=== PATIENT | male | born 1935 | race Caucasian/White ===

== ENCOUNTER 2018-01-23 18:28 | Inpatient (IN) | payer MEDICARE ==
[~2018-01-23] VITALS: Ht 165.1 cm; Wt 66.9 kg
[~2018-01-23 18:28] MED LIST: ACET325T9 PO; ALBU8.5H8 INH; ALLO100T PO; ALPR0.254 PO; ASPI325T8 PO; BUPR150T11 PO; CALC500T10 PO; CHOL10003 PO; DOCU100C28 PO; FINA5TAB4 PO; FLUT9.9S NS; LIDO1ADH TP; MAG30ORA2 PO; METO25TA4 PO; OLAN5TAB3 PO; OLAN5TAB5 PO; OMEP20TA8 PO; ONDA4TAB10 PO; PRAV80TA2 PO; SAXA5TAB PO; SODI50SP NS; TAMS0.4C2 PO
[2018-01-23] MEDS ORDERED: METH5TAB6 PO (18:39)
[2018-01-23] MEDS ORDERED: HYDR-2758 PO (19:32)
[2018-01-23] MEDS ORDERED: SERT50TA PO (19:33)
[2018-01-23] MEDS ORDERED: TRAZ-85 PO (19:35)
[2018-01-23] MEDS ORDERED: IPRA3AMP29 NEB (19:36)
[2018-01-23] MEDS ORDERED: IV NORMAL SALINE 1,000ML 1,000 ML IV SCH (21:30)
[2018-01-23 21:33] VITALS: BP 156/83
[2018-01-23 22:06] LABS: BACTERIA,URINE 0 /HPF (0-FEW); BILIRUBIN,URINE MOD (NEG); CLARITY,URINE CLEAR; COLOR,URINE AMBER; GLUCOSE,URINE NEG (NEG); NITRITE,URINE NEG (NEG); RBC,URINE 0 /HPF (0-2); UROBILINOGEN,URINE 0.2 mg/dL (0.2 mg/dL); WBC,URINE RARE /HPF (0-4)
[2018-01-23] MEDS ORDERED: CALCIUM CARBONATE 500 MG TAB.CHEW PO PRN (22:15)
[2018-01-23] MEDS ORDERED: MAG HYDROX/AL HYDROX/SIMETH 30 ML ORAL.SUSP PO PRN (22:15)
[2018-01-23] MEDS ORDERED: ACETAMINOPHEN 325 MG TABLET PO PRN (22:15)
[2018-01-23] MEDS ORDERED: ALBUTEROL SULFATE 8GM INHALER. INH PRN (22:15)
[2018-01-23] MEDS ORDERED: ALBUTEROL SULFATE 2.5 MG/3 ML NEBU. NEB PRN (22:30)
[2018-01-23] MEDS ORDERED: traZODone 50 MG TABLET. PO PRN (22:30)
[2018-01-23] MEDS ORDERED: SODIUM CHLORIDE 0.65% NASAL SPRAY 45ML BOTTLE. NS PRN (22:30)
[2018-01-23] MEDS: PIPERACILLIN/TAZOBACTAM 2.25 GM in IV NORMAL SALINE 50ML 50 ML IV SCH (22:32)
[2018-01-23 23:45] VITALS: BP 134/74
[2018-01-24 05:00] VITALS: BP 131/60
[2018-01-24 05:16] LABS: BASO % 0 % (0-3); EOS % 0 % (0-3); HEMATOCRIT 35.4 % (39.0-53.0); HEMOGLOBIN 11.3 g/dL (13.0-17.5); LYMPH # 0.7 x10^3/uL (1.0-4.8); LYMPH % 3 % (24-48); MEAN CORPUSCULAR HEMOGLOBIN 32 pg (25-35); MEAN CORPUSCULAR HGB CONC 32 g/dL (31-37); MEAN CORPUSCULAR VOLUME 100 fL (79-100); MONO % 4 % (0-9); NEUT # 20.6 x10^3uL (1.8-7.7); NEUT % 92 % (31-73); PLATELET COUNT 216 x10^3/uL (140-400); RED BLOOD COUNT 3.54 x10^6/uL (4.30-5.70); WHITE BLOOD COUNT 22.4 x10^3/uL (4.0-11.0)
[2018-01-24 05:24] LABS: ALBUMIN 2.5 g/dL (3.4-5.0); ALBUMIN/GLOBULIN RATIO 0.7 (1.0-1.7); CALCIUM 9.2 mg/dL (8.5-10.1); CREATININE 1.8 mg/dL (0.7-1.3); POTASSIUM 4.6 mmol/L (3.5-5.1); TOTAL BILIRUBIN 0.9 mg/dL (0.2-1.0); TOTAL PROTEIN 6.3 g/dL (6.4-8.2)
[2018-01-24] MEDS: PIPERACILLIN/TAZOBACTAM 2.25 GM in IV NORMAL SALINE 50ML 50 ML IV SCH ×3 (05:38→21:28)
[2018-01-24] MEDS: IPRATRPIUM/ALBUTEROL 0.5/2.5MG 3 ML NEBU. NEB SCH ×4 (06:17→20:40)
[2018-01-24] MEDS: PANTOPRAZOLE 40 MG TABLET. PO SCH (07:30)
[2018-01-24 08:21] VITALS: BP 145/62
[2018-01-24] MEDS: SERTRALINE 50 MG TABLET. PO SCH (09:00)
[2018-01-24] MEDS: METOPROLOL TART IMMED RELEASE 25 MG TABLET PO SCH ×2 (09:00→20:36)
[2018-01-24] MEDS: ASPIRIN 325 MG TABLET PO SCH (09:00)
[2018-01-24] MEDS: LACTOBACILLUS RHAMNOSUS GG 1 CAPSULE. PO SCH ×2 (09:00→20:36)
[2018-01-24] MEDS: DOCUSATE SODIUM 100 MG CAPSULE PO SCH ×2 (09:00→20:36)
[2018-01-24] MEDS: FLUTICASONE 50MCG/NASAL SPRAY 16GM BOTTLE. NS SCH (09:00)
[2018-01-24] MEDS: LINAGLIPTIN 5 MG TABLET PO SCH (09:00)
[2018-01-24] MEDS: CHOLECALCIFEROL (VITAMIN D3) 1,000 UNIT TABLET PO SCH (09:00)
[2018-01-24] MEDS: ALLOPURINOL 100 MG TABLET. PO SCH (09:00)
[2018-01-24] MEDS: FINASTERIDE 5 MG TABLET PO SCH (09:00)
[2018-01-24 09:34] LABS: % BANDS 2 % (0-9); % LYMPHS 1 % (24-48); % MONOS 2 % (0-10); % SEGS 95 % (35-66); NUCLEATED RBC 2; PLT ESTIMATE ADEQUATE (ADEQUATE); TOXIC GRANULATION PRESENT
[2018-01-24 09:35] LABS: HYPOCHROMIA SLIGHT
[2018-01-24] MEDS: IV DEXTROSE 5 %-0.45 % NACL 1,000 ML IV SCH (10:56)
[2018-01-24 11:00] VITALS: BP 138/58
--- NOTE | 2018-01-24 11:09 | PN ---
DATE: 01/24/2018 SUBJECTIVE: The patient is resting, slightly propped up in bed, in no apparent respiratory distress, sleepy, but arousable. Denied any complaint. The nursing staff stated that he continued to be noncompliant , refusing to eat, refusing care, refusing his medication. He pulled his IV line once. PHYSICAL EXAMINATION: GENERAL: When I saw him this morning, he looked pale, but no jaundice, cyanosis, or thyromegaly. No jugular venous distention. No limb edema. VITAL SIGNS: His heart rate was 77, blood pressure was 145/62, temperature was 98.3, respiratory rate 20, and oxygen saturation was 96% on room air. HEAD, EYES, EARS, NOSE, AND THROAT: Showed normocephalic, atraumatic. NECK: Supple. HEART: Showed normal first and second heart sounds with no gallop, rub, or murmur. CHEST: Clear to auscultation. No crepitation or rhonchi. ABDOMEN: Scaphoid, soft, nontender. NEUROLOGIC: He was sleepy, but arousable. All cranial nerves intact. He moves extremities without difficulty, although has marked muscle wasting and weakness. His intake and output were incompletely recorded. LABORATORY DATA: His lab work this morning showed a serum sodium of 145, potassium 4.6, chloride 112, bicarbonate 23, anion gap of 10, BUN 47, creatinine 1.8, estimated GFR was 36 mL per minute. His glucose was 153. His lactic acid was 2.4. His calcium was 9.2. Total bilirubin, AST, ALT, alkaline phosphatase were normal. Total protein was 6.3, albumin 2.5. His white cell count has risen further to 22,400, hemoglobin 11.3, hematocrit 35.4, MCV 100, and platelet count of 216,000. His urinalysis again was unremarkable. The patient refused to allow us to have a chest x-ray. ASSESSMENT AND PLAN: In summary, this is an 83-year-old male patient who was transferred to [address] [place] [address] with sepsis with marked leukocytosis and lactic acidosis. We have sent blood for culture and sensitivity as well as urine for culture. The results are still pending. We started him on Zosyn and Zyvox and we will continue with that. 1. Zebjb-[id number]-[id number] kidney injury, for which he is on normal saline at 75 mL per hour. 2. Severe protein-calorie malnutrition. Serum albumin is only 2.5 mg/dL. 3. Anemia. Hemoglobin is 11, hematocrit 35. 4. Recent fall, with right hip fracture, status post open reduction and internal fixation. 5. He has multiple other medical problems including type 2 diabetes mellitus, hyperlipidemia, hypertension, coronary artery disease, status post PCI with stent deployment, chronic kidney disease, benign prostatic hypertrophy. DHAVAL STEPHENSON MD DR: ANDREW/anastasia JOB#: [id number] / [id number]
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
[2018-01-24] MEDS: LIDOCAINE (700MG/PATCH) PATCH. TD SCH (14:19)
[2018-01-24 15:00] VITALS: BP 132/74
--- NOTE | 2018-01-24 17:17 | RAD ---
PQRS Compliance statement: One or more of the following individualized dose reduction techniques were utilized for this examination: 1. Automated exposure control. 2. Adjustment of the mA and/or kV according to patient size. 3. Use of iterative reconstruction technique. Indication: Swelling in the neck, cough, elevated WBC. TECHNIQUE: CT of the neck without IV contrast. IV contrast was not given due to poor renal function. COMPARISON: None FINDINGS: Limited evaluation of due to lack of IV contrast. Visualized noncontrast appearance of the orbits and brain is within normal limits. The nasopharynx, oropharynx and hypopharynx are within normal limits. The left submandibular gland is asymmetrically enlarged. The right submandibular gland, bilateral parotid glands and thyroid are within normal limits. Superficial inflammation is seen in the left face and in the submental soft tissue. No retropharyngeal or prevertebral abscess. No enlarged cervical adenopathy. Trachea is patent. Mild bilateral atherosclerotic disease seen in the carotid bulbs. Shotty left perimandibular lymph nodes are seen. Moderate emphysematous changes in the visualized lungs. The paranasal sinuses and mastoid air cells are clear. Mild multilevel degenerative disc disease is seen in the cervical spine. IMPRESSION: Limited evaluation due to lack of IV contrast. 1. Asymmetrically enlarged left submandibular gland with surrounding inflammation suggests sialadenitis. 2. No retropharyngeal or prevertebral soft tissue abscess. Electronically signed by: Iain Thomas DO (01/24/2018 5:14 PM) [facility]
[2018-01-24 19:30] VITALS: BP 109/58
[2018-01-24] MEDS: OLANZapine 5 MG TABLET PO SCH ×2 (20:36→20:46)
[2018-01-24] MEDS: TAMSULOSIN 0.4 MG CAP.ER.24H. PO SCH ×2 (20:36→20:46)
[2018-01-24] MEDS: PRAVASTATIN 20 MG TABLET. PO SCH (20:37)
--- NOTE | 2018-01-24 21:09 | PDOC ---
Exam Note: Shaheen Note: Please also refer to the separate dictated note~for this date of service dictated separately.~Patient seen individually. Discussed the patient with Nursing staff reviewed the chart.~Reviewed interim history and current functioning. Reviewed vital signs,~Labs/ Radiology~and current medications noted below. Continue current treatment with the changes noted in the dictated addendum note Assessment: Vital Signs: Vital Signs Date Time Temp Pulse Resp B/P (MAP) Pulse Ox O2 Delivery O2 Flow Rate FiO2 01/24/18 20:40 94 Room Air 01/24/18 20:36 66 109/58 01/24/18 19:30 98.9 18 I&O Intake and Output 01/24/18 07:00 Output Total 100 ml Balance -100 ml Output Urine Total 100 ml # Voids 2 Labs: Laboratory Tests Test 01/23/18 21:47 01/23/18 21:50 01/24/18 01:50 01/24/18 05:00 Lactic Acid Level 2.9 mmol/L (0.4-2.0) H 2.4 mmol/L (0.4-2.0) H Urine Collection Type Unknown Urine Color Swetha Urine Clarity Clear Urine pH 5.0 Urine Specific [place] 1.020 Urine Protein 30 mg/dl (NEG-TRACE) Urine Glucose (UA) Neg mg/dL (NEG) Urine Ketones (Stick) 40 mg/dL (NEG) Urine Blood Small (NEG) Urine Nitrite Neg (NEG) Urine Bilirubin Mod (NEG) Urine Urobilinogen Dipstick 0.2 mg/dL (0.2 mg/dL) Urine Leukocyte Esterase Neg (NEG) Urine RBC 0 /HPF (0-2) Urine WBC Rare /HPF (0-4) Urine Squamous Epithelial Cells None /LPF Urine Bacteria 0 /HPF (0-FEW) Urine Mucus Slight /LPF White Blood Count 22.4 x10^3/uL (4.0-11.0) H Red Blood Count 3.54 x10^6/uL (4.30-5.70) L Hemoglobin 11.3 g/dL (13.0-17.5) L Hematocrit 35.4 % (39.0-53.0) L Mean Corpuscular Volume 100 fL (79-100) Mean Corpuscular Hemoglobin 32 pg (25-35) Mean Corpuscular Hemoglobin Concent 32 g/dL (31-37) Red Cell Distribution Width 16.0 % (11.5-14.5) H Platelet Count 216 x10^3/uL (140-400) Neutrophils (%) (Auto) 92 % (31-73) H Lymphocytes (%) (Auto) 3 % (24-48) L Monocytes (%) (Auto) 4 % (0-9) Eosinophils (%) (Auto) 0 % (0-3) Basophils (%) (Auto) 0 % (0-3) Neutrophils # (Auto) 20.6 x10^3uL (1.8-7.7) H Lymphocytes # (Auto) 0.7 x10^3/uL (1.0-4.8) L Monocytes # (Auto) 1.0 x10^3/uL (0.0-1.1) Eosinophils # (Auto) 0.0 x10^3/uL (0.0-0.7) Basophils # (Auto) 0.0 x10^3/uL (0.0-0.2) Segmented Neutrophils % 95 % (35-66) H Band Neutrophils % 2 % (0-9) Lymphocytes % 1 % (24-48) L Monocytes % 2 % (0-10) Nucleated Red Blood Cells 2 Toxic Granulation Present Platelet Estimate Adequate (ADEQUATE) Hypochromasia Slight Sodium Level 145 mmol/L (136-145) Potassium Level 4.6 mmol/L (3.5-5.1) Chloride Level 112 mmol/L (98-107) H Carbon Dioxide Level 23 mmol/L (21-32) Anion Gap 10 (6-14) Blood Urea Nitrogen 47 mg/dL (8-26) H Creatinine 1.8 mg/dL (0.7-1.3) H Estimated GFR (Cockcroft-Gault) 36.0 BUN/Creatinine Ratio 26 (6-20) H Glucose Level 153 mg/dL (70-99) H Calcium Level 9.2 mg/dL (8.5-10.1) Total Bilirubin 0.9 mg/dL (0.2-1.0) Aspartate Amino Transferase (AST) 20 U/L (15-37) Alanine Aminotransferase (ALT) 20 U/L (16-63) Alkaline Phosphatase 70 U/L (46-116) Total Protein 6.3 g/dL (6.4-8.2) L Albumin 2.5 g/dL (3.4-5.0) L Albumin/Globulin Ratio 0.7 (1.0-1.7) L Current Medications: Meds: Current Medications Piperacillin Sod/ Tazobactam Sod 2.25 gm/Sodium Chloride 50 ml @ 100 mls/hr Q8HRS IV Last administered on 01/24/18at 14:00; Start 01/23/18 at 22:00 Linezolid 300 ml @ 300 mls/hr Q12HR IV Last administered on 01/24/18at 20:16; Start 01/23/18 at 21:30 Sodium Chloride 1,000 ml @ 75 mls/hr [id number] IV Last administered on 01/23/18at 22:31; Start 01/23/18 at 21:30; Stop 01/24/18 at 10:13; Status DC Acetaminophen (Tylenol) 650 mg PRN Q6HRS PRN PO PAIN / TEMP; Start 01/23/18 at 22:15 Albuterol Sulfate (Ventolin Hfa Inhaler) 2 puff PRN Q4HRS PRN INH SHORTNESS OF BREATH; Start 01/23/18 at 22:15; Stop 01/23/18 at 22:25; Status DC Aspirin (Sterling Consolidated Aspirin) 325 mg DAILY PO ; Start 01/24/18 at 09:00 Vitamin D (Vitamin D3) 1,000 unit DAILY PO ; Start 01/24/18 at 09:00 Albuterol/ Ipratropium (Duoneb) 3 ml QID NEB Last administered on 01/24/18at 20: 40; Start 01/24/18 at 09:00 Al Hydroxide/Mg Hydroxide (Mylanta Plus Xs) 15 ml PRN Q4HRS PRN PO GERD; Start 01/23/18 at 22:15 Metoprolol Tartrate (Lopressor) 25 mg BID PO ; Start 01/24/18 at 09:00 Olanzapine (ZyPREXA ZYDIS) 2.5 mg PRN Q8MIN PRN PO ANXIETY / AGITATION; Start 01/23/18 at 22:15 Sertraline HCl (Zoloft) 50 mg DAILY PO ; Start 01/24/18 at 09:00 Tamsulosin HCl (Flomax) 0.4 mg QHS PO ; Start 01/24/18 at 21:00 Allopurinol (Zyloprim) 100 mg DAILY PO ; Start 01/24/18 at 09:00 Calcium Carbonate/ Glycine (Tums) 500 mg PRN BID PRN PO INDIGESTION; Start 01/23 at 22:15 Docusate Sodium (Colace) 100 mg BID PO ; Start 01/24/18 at 09:00 Finasteride (Proscar) 5 mg DAILY PO ; Start 01/24/18 at 09:00 Fluticasone Propionate (Flonase) 2 spray DAILY NS ; Start 01/24/18 at 09:00 Acetaminophen/ Hydrocodone Bitart (Lortab 5/325) 1 tab PRN Q4HRS PRN PO PAIN; Start 01/23/18 at 22:30 Lidocaine (Lidoderm) 1 patch DAILY TD Last administered on 01/24/18at 14:19; Start 01/24/18 at 09:00 Methimazole (Tapazole) 5 mg TID PO ; Start 01/24/18 at 09:00 Olanzapine (ZyPREXA) 5 mg QHS PO ; Start 01/24/18 at 21:00 Pantoprazole Sodium (Protonix) 40 mg DAILYAC PO ; Start 01/24/18 at 07:30 Pravastatin Sodium (Pravachol) 80 mg QHS PO ; Start 01/24/18 at 21:00 Linagliptin (Tradjenta) 5 mg DAILY PO ; Start 01/24/18 at 09:00 Sodium Chloride (Saline Mist Nasal) 1 erik PRN Q4HRS PRN NS NASAL CONGESTION; Start 01/23/18 at 22:30 Trazodone HCl (Desyrel) 50 mg PRN QHS PRN PO INSOMNIA; Start 01/23/18 at 22:30 Albuterol Sulfate (Ventolin) 2.5 mg PRN Q4HRS PRN NEB SHORTNESS OF BREATH; Start 01/23/18 at 22:30 Lactobacillus Rhamnosus (Culturelle) 1 cap BID PO ; Start 01/24/18 at 09:00 Dextrose/Sodium Chloride 1,000 ml @ 100 mls/hr Q10H IV Last administered on 01/24/18at 10:56; Start 01/24/18 at 10:15 Active Scripts Active Reported Duoneb 0.5-3(2.5) Mg/3 Ml (Albuterol/Ipratropium) 3 Ml Ampul.neb 3 Ml NEB QID Trazodone Hcl 50 Mg Tablet 50 Mg PO PRN QHS PRN Zoloft (Sertraline Hcl) 50 Mg Tablet 50 Mg PO DAILY Hydrocodone-Apap 5-325 (Hydrocodone Bit/Acetaminophen) 1 Each Tablet 1 Tab PO PRN Q4HRS PRN Methimazole 5 Mg Tablet 5 Mg PO TID Zyprexa Zydis (Olanzapine) 5 Mg Tab.rapdis 2.5 Mg PO PRN Q8MIN PRN Zyprexa (Olanzapine) 5 Mg Tablet 5 Mg PO QHS Zofran Odt (Ondansetron) 4 Mg Tab.rapdis 4 Mg PO PRN Q6HRS PRN Tylenol (Acetaminophen) 325 Mg Tablet 650 Mg PO PRN Q6HRS PRN Calci-Chew (Calcium Carbonate) 500 Mg Tab.chew 500 Mg PO PRN BID PRN Tamsulosin Hcl 0.4 Mg Cap.er.24h 0.4 Mg PO QHS Onglyza (Saxagliptin Hcl) 5 Mg Tablet 2.5 Mg PO DAILY Pravastatin Sodium 80 Mg Tablet 80 Mg PO QHS Omeprazole 20 Mg Tablet.dr 20 Mg PO DAILY Mag-Al Plus Xs Suspension (Mag Hydrox/Al Hydrox/Simeth) 30 Ml Oral.susp 15 Ml PO PRN Q4HRS PRN Metoprolol Tartrate 25 Mg Tablet 25 Mg PO BID Lidopatch (Lidocaine/Menthol) 1 Each Adh..patch 1 Patch TP DAILY Flonase Allergy Relief (Fluticasone Propionate) 9.9 Ml [place].susp 1 Sprays NS DAILY Finasteride 5 Mg Tablet 5 Mg PO DAILY Docusate Sodium 100 Mg Capsule 100 Mg PO BID Vitamin D3 (Cholecalciferol (Vitamin D3)) 1,000 Unit Tablet 1,000 Unit PO DAILY [place] Saline (Sodium Chloride) 50 Ml [place] 1 Erik NS PRN Q4HRS PRN Aspirin 325 Mg Tablet 325 Mg PO DAILY Allopurinol 100 Mg Tablet 100 Mg PO DAILY Proair Hfa Inhaler (Albuterol Sulfate) 8.5 Gm Hfa.aer.ad 2 Puff INH PRN Q4HRS PRN I have reviewed the current psychotropics carefully including drug interactions. Risk benefit ratio favors no change other than as noted in my dictated progress note. 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
[2018-01-24] MEDS: HYDROcodone/APAP 5/325MG 1 TAB TABLET PO PRN (21:28)
--- NOTE | 2018-01-24 21:55 | PN ---
DATE: 01/24/2018 PSYCHIATRIC PROGRESS NOTE This note covers elements not covered in my initial note of 01/24/2018. SUBJECTIVE: I met with the patient in the evening of 01/24/2018. The patient remains confused, has been yelling out per the nursing staff. He remains septic and is being treated per Dr. Minaya, but intermittently psychotic, delirious. He is unable to ambulate. REVIEW OF SYSTEMS: No CV, , pulmonary, eye system symptoms on review. MENTAL STATUS EXAM: Insight, judgment, recent and remote memory, attention, concentration, fund of knowledge poor, consistent with his diagnosis. IMPRESSION: Major neurocognitive disorder, Alzheimer, vascular with delirium, sepsis, acute on chronic renal failure, protein calorie malnutrition, hyperthyroidism. RECOMMENDATION: From a psychiatric standpoint, continue Zyprexa p.r.n. and we may change this to Zyprexa Zydis. No further change from a psychiatric standpoint. JHOAN FARIA MD DR: MIHAELA/anastasia JOB#: [id number] / [id number]
[2018-01-24 23:09] VITALS: BP 110/62
[2018-01-25] MEDS: IV DEXTROSE 5 %-0.45 % NACL 1,000 ML IV SCH (01:01)
[2018-01-25] MEDS: HYDROcodone/APAP 5/325MG 1 TAB TABLET PO PRN ×2 (04:21→22:53)
[2018-01-25] MEDS: IPRATRPIUM/ALBUTEROL 0.5/2.5MG 3 ML NEBU. NEB SCH ×4 (05:20→20:30)
[2018-01-25] MEDS: PIPERACILLIN/TAZOBACTAM 2.25 GM in IV NORMAL SALINE 50ML 50 ML IV SCH ×3 (05:20→22:53)
[2018-01-25 05:47] VITALS: BP 116/68
[2018-01-25 06:39] LABS: HEMATOCRIT 31.1 % (39.0-53.0); HEMOGLOBIN 10.2 g/dL (13.0-17.5); RED BLOOD COUNT 3.16 x10^6/uL (4.30-5.70); RED CELL DISTRIBUTION WIDTH 15.1 % (11.5-14.5); WHITE BLOOD COUNT 16.8 x10^3/uL (4.0-11.0)
[2018-01-25 06:59] LABS: ALBUMIN 2.1 g/dL (3.4-5.0); ALBUMIN/GLOBULIN RATIO 0.6 (1.0-1.7); CALCIUM 8.7 mg/dL (8.5-10.1); CREATININE 1.5 mg/dL (0.7-1.3); GFR 44.5; POTASSIUM 3.3 mmol/L (3.5-5.1); TOTAL BILIRUBIN 0.9 mg/dL (0.2-1.0); TOTAL PROTEIN 5.6 g/dL (6.4-8.2)
[2018-01-25] MEDS: PANTOPRAZOLE 40 MG TABLET. PO SCH (07:30)
[2018-01-25] MEDS: LACTOBACILLUS RHAMNOSUS GG 1 CAPSULE. PO SCH ×2 (09:00→20:43)
[2018-01-25] MEDS: METOPROLOL TART IMMED RELEASE 25 MG TABLET PO SCH ×2 (09:00→20:44)
[2018-01-25] MEDS: ASPIRIN 325 MG TABLET PO SCH (09:00)
[2018-01-25] MEDS: ALLOPURINOL 100 MG TABLET. PO SCH (09:00)
[2018-01-25] MEDS: DOCUSATE SODIUM 100 MG CAPSULE PO SCH ×3 (09:00→21:00)
[2018-01-25] MEDS: FLUTICASONE 50MCG/NASAL SPRAY 16GM BOTTLE. NS SCH (09:00)
[2018-01-25] MEDS: FINASTERIDE 5 MG TABLET PO SCH (09:00)
[2018-01-25] MEDS: CHOLECALCIFEROL (VITAMIN D3) 1,000 UNIT TABLET PO SCH (09:00)
[2018-01-25] MEDS: SERTRALINE 50 MG TABLET. PO SCH (09:00)
[2018-01-25] MEDS: LINAGLIPTIN 5 MG TABLET PO SCH (09:00)
[2018-01-25 10:42] VITALS: BP 147/64
[2018-01-25] MEDS: POTASSIUM CL 40MEQ IN D5W 1,000 ML IV SCH ×2 (11:29→23:36)
[2018-01-25] MEDS: LIDOCAINE (700MG/PATCH) PATCH. TD SCH (11:45)
--- NOTE | 2018-01-25 14:27 | PN ---
DATE: 01/25/2018 SUBJECTIVE: The patient is resting, slightly propped up in bed, in no apparent distress. He continued to complain of pain in his left jaw. He is still unable to eat or drink, although he managed to drink a little bit yesterday. We did a CT scan of the neck and the chest that showed the patient has symmetrically enlarged left submandibular gland with surrounding inflammation, suggesting sialadenitis. He has no retropharyngeal or prevertebral soft tissue abscess. His CT scan of the chest also was unremarkable with moderate emphysematous changes in the visualized lungs. The paranasal sinuses and mastoid air cells are clear. Mild multilevel degenerative disk disease seen in the cervical spine. OBJECTIVE: GENERAL: When I examined him this morning, he looked well and was clearly in no apparent respiratory distress, slightly pale, no jaundice, cyanosis, lymphadenopathy or thyromegaly. No jugular venous distension. No limb edema. VITAL SIGNS: His heart rate was 74, blood pressure was 147/64, temperature was 98.4, respiratory rate was 20, and oxygen saturation was 96% on room air. HEAD, EYES, EARS, NOSE AND THROAT: Showed normocephalic with definitely more swollen left side of the jaw compared to the right. This is markedly tenderness, but there is no Esmarch and it is indurated, but no fluctuation. NECK: Supple. CARDIAC: Normal first and second heart sounds with no gallop, rub or murmur. CHEST: Clear to auscultation. No crepitation or rhonchi. ABDOMEN: Scaphoid, soft, nontender. NEUROLOGIC: He was sleepy, but arousable. All cranial nerves intact. He moves extremities without difficulty. His intake over the last 24 hours was 520, output was 750. LABORATORY DATA: Her lab work this morning showed a white cell count down to 16,800, hemoglobin 10, hematocrit 31, MCV 99, and platelet count of 186,000. Serum sodium is up to 246, potassium 3.3, chloride 113, bicarbonate 24, anion gap of 9, BUN 32, creatinine 1.5. The estimated GFR was 44 mL per minute. Her glucose was 148, calcium was 8.7. Total bilirubin, AST, ALT, alkaline phosphatase were normal. Total protein was 5.6, albumin was 2.1. ASSESSMENT: 1. Sepsis due to left mandibular sialadenitis. 2. Acute kidney injury, improving. His creatinine is down from 2.1 to 1.5. 3. Hypokalemia, hypernatremia, severe protein-calorie malnutrition and lactic acidosis, anemia with a hemoglobin of 11, hematocrit 35. 4. Recent fall with right hip fracture, status post open reduction and internal fixation. PLAN: My plan is to discontinue her D5 half normal, switch him to D5 with 40 mEq of potassium chloride. Meanwhile, continue with IV antibiotic in the form of Zyvox as well as piperacillin and tazobactam. DHAVAL STEPHENSON MD DR: ANDREW/anastasia JOB#: [id number] / [id number]
[2018-01-25 15:17] VITALS: BP 127/60
--- NOTE | 2018-01-25 19:55 | PDOC ---
Exam Note: Shaheen Note: Please also refer to the separate dictated note~for this date of service dictated separately.~Patient seen individually. Discussed the patient with Nursing staff reviewed the chart.~Reviewed interim history and current functioning. Reviewed vital signs,~Labs/ Radiology~and current medications noted below. Continue current treatment with the changes noted in the dictated addendum note Assessment: Vital Signs: Vital Signs Date Time Temp Pulse Resp B/P (MAP) Pulse Ox O2 Delivery O2 Flow Rate FiO2 01/25/18 18:19 16 95 Room Air 01/25/18 15:17 98.3 82 127/60 (82) I&O Intake and Output 01/25/18 07:00 Intake Total 970 ml Output Total 751 ml Balance 219 ml Intake Oral 520 ml IV Total 450 ml Output Urine Total 751 ml # Voids 3 Labs: Laboratory Tests Test 01/25/18 06:25 White Blood Count 16.8 x10^3/uL (4.0-11.0) H Red Blood Count 3.16 x10^6/uL (4.30-5.70) L Hemoglobin 10.2 g/dL (13.0-17.5) L Hematocrit 31.1 % (39.0-53.0) L Mean Corpuscular Volume 99 fL (79-100) Mean Corpuscular Hemoglobin 32 pg (25-35) Mean Corpuscular Hemoglobin Concent 33 g/dL (31-37) Red Cell Distribution Width 15.1 % (11.5-14.5) H Platelet Count 186 x10^3/uL (140-400) Sodium Level 146 mmol/L (136-145) H Potassium Level 3.3 mmol/L (3.5-5.1) L Chloride Level 113 mmol/L (98-107) H Carbon Dioxide Level 24 mmol/L (21-32) Anion Gap 9 (6-14) Blood Urea Nitrogen 32 mg/dL (8-26) H Creatinine 1.5 mg/dL (0.7-1.3) H Estimated GFR (Cockcroft-Gault) 44.5 BUN/Creatinine Ratio 21 (6-20) H Glucose Level 148 mg/dL (70-99) H Calcium Level 8.7 mg/dL (8.5-10.1) Total Bilirubin 0.9 mg/dL (0.2-1.0) Aspartate Amino Transferase (AST) 19 U/L (15-37) Alanine Aminotransferase (ALT) 17 U/L (16-63) Alkaline Phosphatase 61 U/L (46-116) Total Protein 5.6 g/dL (6.4-8.2) L Albumin 2.1 g/dL (3.4-5.0) L Albumin/Globulin Ratio 0.6 (1.0-1.7) L Current Medications: Meds: Current Medications Piperacillin Sod/ Tazobactam Sod 2.25 gm/Sodium Chloride 50 ml @ 100 mls/hr Q8HRS IV Last administered on 01/25/18at 14:26; Start 01/23/18 at 22:00 Linezolid 300 ml @ 300 mls/hr Q12HR IV Last administered on 01/25/18at 09:16; Start 01/23/18 at 21:30 Sodium Chloride 1,000 ml @ 75 mls/hr [id number] IV Last administered on 01/23/18at 22:31; Start 01/23/18 at 21:30; Stop 01/24/18 at 10:13; Status DC Acetaminophen (Tylenol) 650 mg PRN Q6HRS PRN PO PAIN / TEMP; Start 01/23/18 at 22:15 Albuterol Sulfate (Ventolin Hfa Inhaler) 2 puff PRN Q4HRS PRN INH SHORTNESS OF BREATH; Start 01/23/18 at 22:15; Stop 01/23/18 at 22:25; Status DC Aspirin (Maribeth Aspirin) 325 mg DAILY PO ; Start 01/24/18 at 09:00 Vitamin D (Vitamin D3) 1,000 unit DAILY PO ; Start 01/24/18 at 09:00 Albuterol/ Ipratropium (Duoneb) 3 ml QID NEB Last administered on 01/25/18at 15: 23; Start 01/24/18 at 09:00 Al Hydroxide/Mg Hydroxide (Mylanta Plus Xs) 15 ml PRN Q4HRS PRN PO GERD; Start 01/23/18 at 22:15 Metoprolol Tartrate (Lopressor) 25 mg BID PO ; Start 01/24/18 at 09:00 Olanzapine (ZyPREXA ZYDIS) 2.5 mg PRN Q8MIN PRN PO ANXIETY / AGITATION Last administered on 01/24/18at 21:28; Start 01/23/18 at 22:15 Sertraline HCl (Zoloft) 50 mg DAILY PO ; Start 01/24/18 at 09:00 Tamsulosin HCl (Flomax) 0.4 mg QHS PO ; Start 01/24/18 at 21:00 Allopurinol (Zyloprim) 100 mg DAILY PO ; Start 01/24/18 at 09:00 Calcium Carbonate/ Glycine (Tums) 500 mg PRN BID PRN PO INDIGESTION; Start 01/23 at 22:15 Docusate Sodium (Colace) 100 mg BID PO ; Start 01/24/18 at 09:00 Finasteride (Proscar) 5 mg DAILY PO ; Start 01/24/18 at 09:00 Fluticasone Propionate (Flonase) 2 spray DAILY NS ; Start 01/24/18 at 09:00 Acetaminophen/ Hydrocodone Bitart (Lortab 5/325) 1 tab PRN Q4HRS PRN PO MODERATE PAIN Last administered on 01/25/18at 04:21; Start 01/23/18 at 22:30 Lidocaine (Lidoderm) 1 patch DAILY TD Last administered on 01/25/18at 11:45; Start 01/24/18 at 09:00 Methimazole (Tapazole) 5 mg TID PO ; Start 01/24/18 at 09:00 Olanzapine (ZyPREXA) 5 mg QHS PO ; Start 01/24/18 at 21:00 Pantoprazole Sodium (Protonix) 40 mg DAILYAC PO ; Start 01/24/18 at 07:30 Pravastatin Sodium (Pravachol) 80 mg QHS PO ; Start 01/24/18 at 21:00 Linagliptin (Tradjenta) 5 mg DAILY PO ; Start 01/24/18 at 09:00 Sodium Chloride (Saline Mist Nasal) 1 erik PRN Q4HRS PRN NS NASAL CONGESTION; Start 01/23/18 at 22:30 Trazodone HCl (Desyrel) 50 mg PRN QHS PRN PO INSOMNIA; Start 01/23/18 at 22:30 Albuterol Sulfate (Ventolin) 2.5 mg PRN Q4HRS PRN NEB SHORTNESS OF BREATH; Start 01/23/18 at 22:30 Lactobacillus Rhamnosus (Culturelle) 1 cap BID PO ; Start 01/24/18 at 09:00 Dextrose/Sodium Chloride 1,000 ml @ 100 mls/hr Q10H IV Last administered on 01/25/18at 01:01; Start 01/24/18 at 10:15; Stop 01/25/18 at 11:01; Status DC Potassium Chloride/Dextrose 1,000 ml @ 100 mls/hr Q10H IV Last administered on 01/25/18at 11:29; Start 01/25/18 at 11:30 Nystatin (Nystop) 1 erik BID TP ; Start 01/25/18 at 21:00 Fentanyl Citrate (Fentanyl 2ml Vial) 25 mcg Q3H PRN IV SEVERE PAIN Last administered on 01/25/18at 17:49; Start 01/25/18 at 11:45 Active Scripts Active Reported Duoneb 0.5-3(2.5) Mg/3 Ml (Albuterol/Ipratropium) 3 Ml Ampul.neb 3 Ml NEB QID Trazodone Hcl 50 Mg Tablet 50 Mg PO PRN QHS PRN Zoloft (Sertraline Hcl) 50 Mg Tablet 50 Mg PO DAILY Hydrocodone-Apap 5-325 (Hydrocodone Bit/Acetaminophen) 1 Each Tablet 1 Tab PO PRN Q4HRS PRN Methimazole 5 Mg Tablet 5 Mg PO TID Zyprexa Zydis (Olanzapine) 5 Mg Tab.rapdis 2.5 Mg PO PRN Q8MIN PRN Zyprexa (Olanzapine) 5 Mg Tablet 5 Mg PO QHS Zofran Odt (Ondansetron) 4 Mg Tab.rapdis 4 Mg PO PRN Q6HRS PRN Tylenol (Acetaminophen) 325 Mg Tablet 650 Mg PO PRN Q6HRS PRN Calci-Chew (Calcium Carbonate) 500 Mg Tab.chew 500 Mg PO PRN BID PRN Tamsulosin Hcl 0.4 Mg Cap.er.24h 0.4 Mg PO QHS Onglyza (Saxagliptin Hcl) 5 Mg Tablet 2.5 Mg PO DAILY Pravastatin Sodium 80 Mg Tablet 80 Mg PO QHS Omeprazole 20 Mg Tablet.dr 20 Mg PO DAILY Mag-Al Plus Xs Suspension (Mag Hydrox/Al Hydrox/Simeth) 30 Ml Oral.susp 15 Ml PO PRN Q4HRS PRN Metoprolol Tartrate 25 Mg Tablet 25 Mg PO BID Lidopatch (Lidocaine/Menthol) 1 Each Adh..patch 1 Patch TP DAILY Flonase Allergy Relief (Fluticasone Propionate) 9.9 Ml [place].susp 1 Sprays NS DAILY Finasteride 5 Mg Tablet 5 Mg PO DAILY Docusate Sodium 100 Mg Capsule 100 Mg PO BID Vitamin D3 (Cholecalciferol (Vitamin D3)) 1,000 Unit Tablet 1,000 Unit PO DAILY [place] Saline (Sodium Chloride) 50 Ml [place] 1 Erik NS PRN Q4HRS PRN Aspirin 325 Mg Tablet 325 Mg PO DAILY Allopurinol 100 Mg Tablet 100 Mg PO DAILY Proair Hfa Inhaler (Albuterol Sulfate) 8.5 Gm Hfa.aer.ad 2 Puff INH PRN Q4HRS PRN I have reviewed the current psychotropics carefully including drug interactions. Risk benefit ratio favors no change other than as noted in my dictated progress note. 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
[2018-01-25 20:02] VITALS: BP 89/64
[2018-01-25] MEDS: TAMSULOSIN 0.4 MG CAP.ER.24H. PO SCH (20:43)
[2018-01-25] MEDS: OLANZapine 5 MG TABLET PO SCH (20:45)
[2018-01-25] MEDS: PRAVASTATIN 20 MG TABLET. PO SCH (20:45)
[2018-01-25] MEDS: NYSTATIN TOPICAL POWDER 15GM BOTTLE. TP SCH (21:09)
[2018-01-25 23:42] VITALS: BP 125/66
--- NOTE | 2018-01-25 23:42 | PN ---
DATE: 01/24/2018 PSYCHIATRIC PROGRESS NOTE This is a late entry 01/24/2018 covers elements not covered in my initial note 01/24/2018. SUBJECTIVE: I met with the patient in the evening. Per nursing report, the patient remains confused, intermittently agitated, labile. REVIEW OF SYSTEMS: No CV, , pulmonary, eye, ENT system symptoms on review. He has been yelling. He remains very confused. MENTAL STATUS EXAM: Oriented to himself. Insight, judgment, recent and remote memory, attention, concentration, fund of knowledge poor, consistent with his diagnosis mentioned in my initial note. PLAN: No change from initial note. MAN Ferny FARIA MD DR: MIHAELA/anastasia JOB#: [id number] / [id number]
[2018-01-26 05:42] VITALS: BP 120/69
[2018-01-26] MEDS: IPRATRPIUM/ALBUTEROL 0.5/2.5MG 3 ML NEBU. NEB SCH ×4 (05:55→20:23)
[2018-01-26] MEDS: PIPERACILLIN/TAZOBACTAM 2.25 GM in IV NORMAL SALINE 50ML 50 ML IV SCH ×3 (06:09→22:18)
[2018-01-26 06:12] LABS: HEMOGLOBIN 9.7 g/dL (13.0-17.5); RED BLOOD COUNT 3.04 x10^6/uL (4.30-5.70); RED CELL DISTRIBUTION WIDTH 15.3 % (11.5-14.5); WHITE BLOOD COUNT 13.6 x10^3/uL (4.0-11.0)
[2018-01-26 06:15] LABS: CALCIUM 8.3 mg/dL (8.5-10.1); CREATININE 1.3 mg/dL (0.7-1.3); GFR 52.5
[2018-01-26] MEDS: LIDOCAINE (700MG/PATCH) PATCH. TD SCH ×2 (09:00→09:38)
[2018-01-26] MEDS: DOCUSATE SODIUM 100 MG CAPSULE PO SCH ×2 (09:00→21:00)
[2018-01-26] MEDS: ASPIRIN 325 MG TABLET PO SCH (09:37)
[2018-01-26] MEDS: PANTOPRAZOLE 40 MG TABLET. PO SCH (09:39)
[2018-01-26] MEDS: LACTOBACILLUS RHAMNOSUS GG 1 CAPSULE. PO SCH ×2 (09:39→22:02)
[2018-01-26] MEDS: FLUTICASONE 50MCG/NASAL SPRAY 16GM BOTTLE. NS SCH (09:39)
[2018-01-26] MEDS: FINASTERIDE 5 MG TABLET PO SCH (09:39)
[2018-01-26] MEDS: ALLOPURINOL 100 MG TABLET. PO SCH (09:39)
[2018-01-26] MEDS: LINAGLIPTIN 5 MG TABLET PO SCH (09:40)
[2018-01-26] MEDS: CHOLECALCIFEROL (VITAMIN D3) 1,000 UNIT TABLET PO SCH (09:41)
[2018-01-26] MEDS: SERTRALINE 50 MG TABLET. PO SCH (09:41)
[2018-01-26] MEDS: METOPROLOL TART IMMED RELEASE 25 MG TABLET PO SCH ×2 (09:41→22:06)
[2018-01-26] MEDS: NYSTATIN TOPICAL POWDER 15GM BOTTLE. TP SCH ×2 (09:47→21:00)
[2018-01-26] MEDS: POTASSIUM CL 40MEQ IN D5W 1,000 ML IV SCH ×2 (09:49→22:00)
[2018-01-26] MEDS: HYDROcodone/APAP 5/325MG 1 TAB TABLET PO PRN ×3 (11:13→22:08)
[2018-01-26 11:20] VITALS: BP 116/47
--- NOTE | 2018-01-26 14:36 | PDOC ---
SUBJECTIVE: I find the patient lying in bed in his darkroom sleeping. He is very sleepy but arousable. He does not offer much usable information but does not appear to be in any distress. OBJECTIVE: Vital Signs: Vital Signs Date Time Temp Pulse Resp B/P (MAP) Pulse Ox O2 Delivery O2 Flow Rate FiO2 01/26/18 12:13 91 Room Air 01/26/18 11:20 98.2 62 20 116/47 (70) I & O Intake and Output 01/26/18 07:00 Intake Total 3193 ml Output Total 575 ml Balance 2618 ml Intake Oral 830 ml IV Total 2363 ml Output Urine Total 575 ml # Voids 4 # Bowel Movements 2 Labs: Laboratory Tests Test 01/24/18 20:34 01/25/18 06:25 01/25/18 20:12 01/26/18 05:47 Glucose (Fingerstick) 177 mg/dL (70-99) 154 mg/dL (70-99) White Blood Count 16.8 x10^3/uL (4.0-11.0) 13.6 x10^3/uL (4.0-11.0) Red Blood Count 3.16 x10^6/uL (4.30-5.70) 3.04 x10^6/uL (4.30-5.70) Hemoglobin 10.2 g/dL (13.0-17.5) 9.7 g/dL (13.0-17.5) Hematocrit 31.1 % (39.0-53.0) 30.0 % (39.0-53.0) Mean Corpuscular Volume 99 fL (79-100) 99 fL (79-100) Mean Corpuscular Hemoglobin 32 pg (25-35) 32 pg (25-35) Mean Corpuscular Hemoglobin Concent 33 g/dL (31-37) 32 g/dL (31-37) Red Cell Distribution Width 15.1 % (11.5-14.5) 15.3 % (11.5-14.5) Platelet Count 186 x10^3/uL (140-400) 168 x10^3/uL (140-400) Sodium Level 146 mmol/L (136-145) 140 mmol/L (136-145) Potassium Level 3.3 mmol/L (3.5-5.1) 4.0 mmol/L (3.5-5.1) Chloride Level 113 mmol/L (98-107) 107 mmol/L (98-107) Carbon Dioxide Level 24 mmol/L (21-32) 25 mmol/L (21-32) Anion Gap 9 (6-14) 8 (6-14) Blood Urea Nitrogen 32 mg/dL (8-26) 19 mg/dL (8-26) Creatinine 1.5 mg/dL (0.7-1.3) 1.3 mg/dL (0.7-1.3) Estimated GFR (Cockcroft-Gault) 44.5 52.5 BUN/Creatinine Ratio 21 (6-20) Glucose Level 148 mg/dL (70-99) 127 mg/dL (70-99) Calcium Level 8.7 mg/dL (8.5-10.1) 8.3 mg/dL (8.5-10.1) Total Bilirubin 0.9 mg/dL (0.2-1.0) Aspartate Amino Transf (AST/SGOT) 19 U/L (15-37) Alanine Aminotransferase (ALT/SGPT) 17 U/L (16-63) Alkaline Phosphatase 61 U/L (46-116) Total Protein 5.6 g/dL (6.4-8.2) Albumin 2.1 g/dL (3.4-5.0) Albumin/Globulin Ratio 0.6 (1.0-1.7) Test 01/26/18 07:49 Glucose (Fingerstick) 139 mg/dL (70-99) EMELI YEPEZ DO Jan 26, 2018 14:36
[2018-01-26 15:38] VITALS: BP 134/73
--- NOTE | 2018-01-26 18:58 | PDOC ---
Exam Note: Shaheen Note: Please also refer to the separate dictated note~for this date of service dictated separately.~Patient seen individually. Discussed the patient with Nursing staff reviewed the chart.~Reviewed interim history and current functioning. Reviewed vital signs,~Labs/ Radiology~and current medications noted below. Continue current treatment with the changes noted in the dictated addendum note Assessment: Vital Signs: Vital Signs Date Time Temp Pulse Resp B/P (MAP) Pulse Ox O2 Delivery O2 Flow Rate FiO2 01/26/18 18:08 99 Room Air 01/26/18 15:38 98.3 85 18 134/73 (93) I&O Intake and Output 01/26/18 07:00 Intake Total 3193 ml Output Total 575 ml Balance 2618 ml Intake Oral 830 ml IV Total 2363 ml Output Urine Total 575 ml # Voids 4 # Bowel Movements 2 Labs: Laboratory Tests Test 01/25/18 20:12 01/26/18 05:47 01/26/18 07:49 Glucose (Fingerstick) 154 mg/dL (70-99) H 139 mg/dL (70-99) H White Blood Count 13.6 x10^3/uL (4.0-11.0) H Red Blood Count 3.04 x10^6/uL (4.30-5.70) L Hemoglobin 9.7 g/dL (13.0-17.5) L Hematocrit 30.0 % (39.0-53.0) L Mean Corpuscular Volume 99 fL (79-100) Mean Corpuscular Hemoglobin 32 pg (25-35) Mean Corpuscular Hemoglobin Concent 32 g/dL (31-37) Red Cell Distribution Width 15.3 % (11.5-14.5) H Platelet Count 168 x10^3/uL (140-400) Sodium Level 140 mmol/L (136-145) Potassium Level 4.0 mmol/L (3.5-5.1) Chloride Level 107 mmol/L (98-107) Carbon Dioxide Level 25 mmol/L (21-32) Anion Gap 8 (6-14) Blood Urea Nitrogen 19 mg/dL (8-26) Creatinine 1.3 mg/dL (0.7-1.3) Estimated GFR (Cockcroft-Gault) 52.5 Glucose Level 127 mg/dL (70-99) H Calcium Level 8.3 mg/dL (8.5-10.1) L Current Medications: Meds: Current Medications Piperacillin Sod/ Tazobactam Sod 2.25 gm/Sodium Chloride 50 ml @ 100 mls/hr Q8HRS IV Last administered on 01/26/18 13:51; Start 01/23/18 at 22:00 Linezolid 300 ml @ 300 mls/hr Q12HR IV Last administered on 01/26/18 09:38; Start 01/23/18 at 21:30 Sodium Chloride 1,000 ml @ 75 mls/hr [id number] IV Last administered on 01/23/18 22:31; Start 01/23/18 at 21:30; Stop 01/24/18 at 10:13; Status DC Acetaminophen (Tylenol) 650 mg PRN Q6HRS PRN PO PAIN / TEMP; Start 01/23/18 at 22:15 Albuterol Sulfate (Ventolin Hfa Inhaler) 2 puff PRN Q4HRS PRN INH SHORTNESS OF BREATH; Start 01/23/18 at 22:15; Stop 01/23/18 at 22:25; Status DC Aspirin (Maribeth Aspirin) 325 mg DAILY PO Last administered on 01/26/18 09:37; Start 01/24/18 at 09:00 Vitamin D (Vitamin D3) 1,000 unit DAILY PO Last administered on 01/26/18 09:41 ; Start 01/24/18 at 09:00 Albuterol/ Ipratropium (Duoneb) 3 ml QID NEB Last administered on 01/26/18 16: 21; Start 01/24/18 at 09:00 Al Hydroxide/Mg Hydroxide (Mylanta Plus Xs) 15 ml PRN Q4HRS PRN PO GERD; Start 01/23/18 at 22:15 Metoprolol Tartrate (Lopressor) 25 mg BID PO Last administered on 01/26/18 09: 41; Start 01/24/18 at 09:00 Olanzapine (ZyPREXA ZYDIS) 2.5 mg PRN Q8MIN PRN PO ANXIETY / AGITATION Last administered on 01/25/18 22:53; Start 01/23/18 at 22:15 Sertraline HCl (Zoloft) 50 mg DAILY PO Last administered on 01/26/18 09:41; Start 01/24/18 at 09:00 Tamsulosin HCl (Flomax) 0.4 mg QHS PO Last administered on 01/25/18 20:43; Start 01/24/18 at 21:00 Allopurinol (Zyloprim) 100 mg DAILY PO Last administered on 01/26/18 09:39; Start 01/24/18 at 09:00 Calcium Carbonate/ Glycine (Tums) 500 mg PRN BID PRN PO INDIGESTION; Start 01/23 at 22:15 Docusate Sodium (Colace) 100 mg BID PO ; Start 01/24/18 at 09:00 Finasteride (Proscar) 5 mg DAILY PO Last administered on 01/26/18 09:39; Start 01/24/18 at 09:00 Fluticasone Propionate (Flonase) 2 spray DAILY NS Last administered on 09:39; Start 01/24/18 at 09:00 Acetaminophen/ Hydrocodone Bitart (Lortab 5/325) 1 tab PRN Q4HRS PRN PO MODERATE PAIN Last administered on 01/26/18 18:08; Start 01/23/18 at 22:30 Lidocaine (Lidoderm) 1 patch DAILY TD Last administered on 01/25/18 11:45; Start 01/24/18 at 09:00 Methimazole (Tapazole) 5 mg TID PO Last administered on 01/26/18 13:51; Start 01/24/18 at 09:00 Olanzapine (ZyPREXA) 5 mg QHS PO Last administered on 01/25/18 20:45; Start 01/24/18 at 21:00 Pantoprazole Sodium (Protonix) 40 mg DAILYAC PO Last administered on 01/26/18 09:39; Start 01/24/18 at 07:30 Pravastatin Sodium (Pravachol) 80 mg QHS PO Last administered on 01/25/18 20:45 ; Start 01/24/18 at 21:00 Linagliptin (Tradjenta) 5 mg DAILY PO Last administered on 01/26/18 09:40; Start 01/24/18 at 09:00 Sodium Chloride (Saline Mist Nasal) 1 erik PRN Q4HRS PRN NS NASAL CONGESTION; Start 01/23/18 at 22:30 Trazodone HCl (Desyrel) 50 mg PRN QHS PRN PO INSOMNIA; Start 01/23/18 at 22:30 Albuterol Sulfate (Ventolin) 2.5 mg PRN Q4HRS PRN NEB SHORTNESS OF BREATH; Start 01/23/18 at 22:30 Lactobacillus Rhamnosus (Culturelle) 1 cap BID PO Last administered on at 09:39; Start 01/24/18 at 09:00 Dextrose/Sodium Chloride 1,000 ml @ 100 mls/hr Q10H IV Last administered on 01/25/18at 01:01; Start 01/24/18 at 10:15; Stop 01/25/18 at 11:01; Status DC Potassium Chloride/Dextrose 1,000 ml @ 100 mls/hr Q10H IV Last administered on 01/26/18at 09:49; Start 01/25/18 at 11:30 Nystatin (Nystop) 1 erik BID TP Last administered on 01/26/18at 09:47; Start 01/25 at 21:00 Fentanyl Citrate (Fentanyl 2ml Vial) 25 mcg Q3H PRN IV SEVERE PAIN Last administered on 01/26/18at 00:36; Start 01/25/18 at 11:45 Active Scripts Active Reported Duoneb 0.5-3(2.5) Mg/3 Ml (Albuterol/Ipratropium) 3 Ml Ampul.neb 3 Ml NEB QID Trazodone Hcl 50 Mg Tablet 50 Mg PO PRN QHS PRN Zoloft (Sertraline Hcl) 50 Mg Tablet 50 Mg PO DAILY Hydrocodone-Apap 5-325 (Hydrocodone Bit/Acetaminophen) 1 Each Tablet 1 Tab PO PRN Q4HRS PRN Methimazole 5 Mg Tablet 5 Mg PO TID Zyprexa Zydis (Olanzapine) 5 Mg Tab.rapdis 2.5 Mg PO PRN Q8MIN PRN Zyprexa (Olanzapine) 5 Mg Tablet 5 Mg PO QHS Zofran Odt (Ondansetron) 4 Mg Tab.rapdis 4 Mg PO PRN Q6HRS PRN Tylenol (Acetaminophen) 325 Mg Tablet 650 Mg PO PRN Q6HRS PRN Calci-Chew (Calcium Carbonate) 500 Mg Tab.chew 500 Mg PO PRN BID PRN Tamsulosin Hcl 0.4 Mg Cap.er.24h 0.4 Mg PO QHS Onglyza (Saxagliptin Hcl) 5 Mg Tablet 2.5 Mg PO DAILY Pravastatin Sodium 80 Mg Tablet 80 Mg PO QHS Omeprazole 20 Mg Tablet.dr 20 Mg PO DAILY Mag-Al Plus Xs Suspension (Mag Hydrox/Al Hydrox/Simeth) 30 Ml Oral.susp 15 Ml PO PRN Q4HRS PRN Metoprolol Tartrate 25 Mg Tablet 25 Mg PO BID Lidopatch (Lidocaine/Menthol) 1 Each Adh..patch 1 Patch TP DAILY Flonase Allergy Relief (Fluticasone Propionate) 9.9 Ml [place].susp 1 Sprays NS DAILY Finasteride 5 Mg Tablet 5 Mg PO DAILY Docusate Sodium 100 Mg Capsule 100 Mg PO BID Vitamin D3 (Cholecalciferol (Vitamin D3)) 1,000 Unit Tablet 1,000 Unit PO DAILY [place] Saline (Sodium Chloride) 50 Ml [place] 1 Erik NS PRN Q4HRS PRN Aspirin 325 Mg Tablet 325 Mg PO DAILY Allopurinol 100 Mg Tablet 100 Mg PO DAILY Proair Hfa Inhaler (Albuterol Sulfate) 8.5 Gm Hfa.aer.ad 2 Puff INH PRN Q4HRS PRN I have reviewed the current psychotropics carefully including drug interactions. Risk benefit ratio favors no change other than as noted in my dictated progress note. 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
[2018-01-26 20:01] VITALS: BP 128/66
[2018-01-26] MEDS: TAMSULOSIN 0.4 MG CAP.ER.24H. PO SCH ×2 (21:00→22:02)
[2018-01-26] MEDS: OLANZapine 5 MG TABLET PO SCH (22:05)
[2018-01-26] MEDS: PRAVASTATIN 20 MG TABLET. PO SCH (22:05)
--- NOTE | 2018-01-26 22:22 | PN ---
DATE: 01/25/2018 PSYCHIATRIC PROGRESS NOTE This late entry 01/25/2018 covers elements not covered in my initial note. SUBJECTIVE: Met with the patient in the evening. Per nursing report, the patient remains intermittently agitated, but less labile, less yelling. He is somewhat sedated in the evening. Not responsive too. REVIEW OF SYSTEMS: Symptom questions consequent to his confusion. MENTAL STATUS EXAM: Oriented to himself. Insight, judgment, recent and remote memory, attention, concentration, fund of knowledge is poor, consistent with his diagnoses mentioned in my initial note. PLAN: No change from initial note from a psychiatric standpoint, defer medical management of his sepsis to Dr. Minaya and then consider whether [facility] or transitions to custodial. MAN Ferny FARIA MD DR: MIHAELA/anastasia JOB#: [id number] / [id number]
[2018-01-26 22:46] VITALS: BP 120/65
[2018-01-27] MEDS: POTASSIUM CL 40MEQ IN D5W 1,000 ML IV SCH ×2 (03:30→12:04)
[2018-01-27] MEDS: IPRATRPIUM/ALBUTEROL 0.5/2.5MG 3 ML NEBU. NEB SCH ×2 (05:26→09:30)
[2018-01-27 05:43] VITALS: BP 123/67
[2018-01-27] MEDS: PIPERACILLIN/TAZOBACTAM 2.25 GM in IV NORMAL SALINE 50ML 50 ML IV SCH ×2 (06:02→13:52)
[2018-01-27 06:32] LABS: BASO % 0 % (0-3); EOS # 0.6 x10^3/uL (0.0-0.7); EOS % 5 % (0-3); HEMATOCRIT 32.3 % (39.0-53.0); HEMOGLOBIN 10.5 g/dL (13.0-17.5); LYMPH # 1.7 x10^3/uL (1.0-4.8); LYMPH % 14 % (24-48); MEAN CORPUSCULAR HEMOGLOBIN 32 pg (25-35); MEAN CORPUSCULAR HGB CONC 33 g/dL (31-37); MEAN CORPUSCULAR VOLUME 98 fL (79-100); MONO # 0.5 x10^3/uL (0.0-1.1); MONO % 5 % (0-9); NEUT % 76 % (31-73); PLATELET COUNT 179 x10^3/uL (140-400); RED BLOOD COUNT 3.29 x10^6/uL (4.30-5.70); RED CELL DISTRIBUTION WIDTH 14.9 % (11.5-14.5); WHITE BLOOD COUNT 11.8 x10^3/uL (4.0-11.0)
[2018-01-27] MEDS: METOPROLOL TART IMMED RELEASE 25 MG TABLET PO SCH ×2 (09:00→09:26)
[2018-01-27] MEDS: FINASTERIDE 5 MG TABLET PO SCH ×2 (09:00→09:25)
[2018-01-27] MEDS: NYSTATIN TOPICAL POWDER 15GM BOTTLE. TP SCH (09:00)
[2018-01-27] MEDS: LINAGLIPTIN 5 MG TABLET PO SCH ×2 (09:00→09:26)
[2018-01-27] MEDS: ALLOPURINOL 100 MG TABLET. PO SCH ×2 (09:00→09:25)
[2018-01-27] MEDS: FLUTICASONE 50MCG/NASAL SPRAY 16GM BOTTLE. NS SCH (09:00)
[2018-01-27] MEDS: ASPIRIN 325 MG TABLET PO SCH ×2 (09:00→09:25)
[2018-01-27] MEDS: LACTOBACILLUS RHAMNOSUS GG 1 CAPSULE. PO SCH ×2 (09:00→09:26)
[2018-01-27] MEDS: SERTRALINE 50 MG TABLET. PO SCH ×2 (09:00→09:26)
[2018-01-27] MEDS: CHOLECALCIFEROL (VITAMIN D3) 1,000 UNIT TABLET PO SCH ×2 (09:00→09:25)
[2018-01-27] MEDS: LIDOCAINE (700MG/PATCH) PATCH. TD SCH (09:23)
[2018-01-27] MEDS: PANTOPRAZOLE 40 MG TABLET. PO SCH (09:26)
[2018-01-27] MEDS: DOCUSATE SODIUM 100 MG CAPSULE PO SCH (09:26)
[2018-01-27 10:44] VITALS: BP 129/69
--- NOTE | 2018-01-27 12:06 | PDOC3 ---
Discharge Summary Brief Hospital Course Allergies Allergies Coded Allergies Type Severity Reaction Last Updated Verified niacin Allergy Intermediate 01/20/18 Yes Vital Signs Vital Signs Date Time Temp Pulse Resp B/P (MAP) Pulse Ox O2 Delivery O2 Flow Rate FiO2 01/27/18 10:44 98.0 87 20 129/69 (89) 95 Room Air Lab Results Laboratory Tests Test 01/25/18 20:12 01/26/18 05:47 01/26/18 07:49 01/26/18 20:12 Glucose (Fingerstick) 154 mg/dL (70-99) 139 mg/dL (70-99) 116 mg/dL (70-99) White Blood Count 13.6 x10^3/uL (4.0-11.0) Red Blood Count 3.04 x10^6/uL (4.30-5.70) Hemoglobin 9.7 g/dL (13.0-17.5) Hematocrit 30.0 % (39.0-53.0) Mean Corpuscular Volume 99 fL (79-100) Mean Corpuscular Hemoglobin 32 pg (25-35) Mean Corpuscular Hemoglobin Concent 32 g/dL (31-37) Red Cell Distribution Width 15.3 % (11.5-14.5) Platelet Count 168 x10^3/uL (140-400) Sodium Level 140 mmol/L (136-145) Potassium Level 4.0 mmol/L (3.5-5.1) Chloride Level 107 mmol/L (98-107) Carbon Dioxide Level 25 mmol/L (21-32) Anion Gap 8 (6-14) Blood Urea Nitrogen 19 mg/dL (8-26) Creatinine 1.3 mg/dL (0.7-1.3) Estimated GFR (Cockcroft-Gault) 52.5 Glucose Level 127 mg/dL (70-99) Calcium Level 8.3 mg/dL (8.5-10.1) Test 01/27/18 06:06 01/27/18 07:21 White Blood Count 11.8 x10^3/uL (4.0-11.0) Red Blood Count 3.29 x10^6/uL (4.30-5.70) Hemoglobin 10.5 g/dL (13.0-17.5) Hematocrit 32.3 % (39.0-53.0) Mean Corpuscular Volume 98 fL (79-100) Mean Corpuscular Hemoglobin 32 pg (25-35) Mean Corpuscular Hemoglobin Concent 33 g/dL (31-37) Red Cell Distribution Width 14.9 % (11.5-14.5) Platelet Count 179 x10^3/uL (140-400) Neutrophils (%) (Auto) 76 % (31-73) Lymphocytes (%) (Auto) 14 % (24-48) Monocytes (%) (Auto) 5 % (0-9) Eosinophils (%) (Auto) 5 % (0-3) Basophils (%) (Auto) 0 % (0-3) Neutrophils # (Auto) 9.0 x10^3uL (1.8-7.7) Lymphocytes # (Auto) 1.7 x10^3/uL (1.0-4.8) Monocytes # (Auto) 0.5 x10^3/uL (0.0-1.1) Eosinophils # (Auto) 0.6 x10^3/uL (0.0-0.7) Basophils # (Auto) 0.0 x10^3/uL (0.0-0.2) Glucose (Fingerstick) 108 mg/dL (70-99) Brief Hospital Course Mr. Wong is a 83 old [sex] who presented with [ ] Discharge Information Dischare Medications Current Medications Piperacillin Sod/ Tazobactam Sod 2.25 gm/Sodium Chloride 50 ml @ 100 mls/hr Q8HRS IV Last administered on 01/27/18at 06:02; Start 01/23/18 at 22:00 Linezolid 300 ml @ 300 mls/hr Q12HR IV Last administered on 01/27/18at 09:23; Start 01/23/18 at 21:30 Sodium Chloride 1,000 ml @ 75 mls/hr [id number] IV Last administered on 01/23/18at 22:31; Start 01/23/18 at 21:30; Stop 01/24/18 at 10:13; Status DC Acetaminophen (Tylenol) 650 mg PRN Q6HRS PRN PO PAIN / TEMP; Start 01/23/18 at 22:15 Albuterol Sulfate (Ventolin Hfa Inhaler) 2 puff PRN Q4HRS PRN INH SHORTNESS OF BREATH; Start 01/23/18 at 22:15; Stop 01/23/18 at 22:25; Status DC Aspirin (Maribeth Aspirin) 325 mg DAILY PO Last administered on 01/26/18 09:37; Start 01/24/18 at 09:00 Vitamin D (Vitamin D3) 1,000 unit DAILY PO Last administered on 01/26/18 09:41 ; Start 01/24/18 at 09:00 Albuterol/ Ipratropium (Duoneb) 3 ml QID NEB Last administered on 01/27/18 09: 30; Start 01/24/18 at 09:00 Al Hydroxide/Mg Hydroxide (Mylanta Plus Xs) 15 ml PRN Q4HRS PRN PO GERD; Start 01/23/18 at 22:15 Metoprolol Tartrate (Lopressor) 25 mg BID PO Last administered on 01/26/18 22: 06; Start 01/24/18 at 09:00 Olanzapine (ZyPREXA ZYDIS) 2.5 mg PRN Q8MIN PRN PO ANXIETY / AGITATION Last administered on 01/27/18 04:59; Start 01/23/18 at 22:15 Sertraline HCl (Zoloft) 50 mg DAILY PO Last administered on 01/26/18 09:41; Start 01/24/18 at 09:00 Tamsulosin HCl (Flomax) 0.4 mg QHS PO Last administered on 01/25/18 20:43; Start 01/24/18 at 21:00 Allopurinol (Zyloprim) 100 mg DAILY PO Last administered on 01/26/18 09:39; Start 01/24/18 at 09:00 Calcium Carbonate/ Glycine (Tums) 500 mg PRN BID PRN PO INDIGESTION; Start 01/23 at 22:15 Docusate Sodium (Colace) 100 mg BID PO Last administered on 01/27/18 09:26; Start 01/24/18 at 09:00 Finasteride (Proscar) 5 mg DAILY PO Last administered on 01/26/18 09:39; Start 01/24/18 at 09:00 Fluticasone Propionate (Flonase) 2 spray DAILY NS Last administered on 09:39; Start 01/24/18 at 09:00 Acetaminophen/ Hydrocodone Bitart (Lortab 5/325) 1 tab PRN Q4HRS PRN PO MODERATE PAIN Last administered on 01/26/18 22:08; Start 01/23/18 at 22:30 Lidocaine (Lidoderm) 1 patch DAILY TD Last administered on 01/27/18 09:23; Start 01/24/18 at 09:00 Methimazole (Tapazole) 5 mg TID PO Last administered on 01/26/18 22:06; Start 01/24/18 at 09:00 Olanzapine (ZyPREXA) 5 mg QHS PO Last administered on 01/26/18 22:05; Start at 21:00 Pantoprazole Sodium (Protonix) 40 mg DAILYAC PO Last administered on 01/27/18 09:26; Start 01/24/18 at 07:30 Pravastatin Sodium (Pravachol) 80 mg QHS PO Last administered on 01/26/18 22: 05; Start 01/24/18 at 21:00 Linagliptin (Tradjenta) 5 mg DAILY PO Last administered on 01/26/18at 09:40; Start 01/24/18 at 09:00 Sodium Chloride (Saline Mist Nasal) 1 erik PRN Q4HRS PRN NS NASAL CONGESTION; Start 01/23/18 at 22:30 Trazodone HCl (Desyrel) 50 mg PRN QHS PRN PO INSOMNIA; Start 01/23/18 at 22:30 Albuterol Sulfate (Ventolin) 2.5 mg PRN Q4HRS PRN NEB SHORTNESS OF BREATH; Start 01/23/18 at 22:30 Lactobacillus Rhamnosus (Culturelle) 1 cap BID PO Last administered on 22:02; Start 01/24/18 at 09:00 Dextrose/Sodium Chloride 1,000 ml @ 100 mls/hr Q10H IV Last administered on 01/25/18at 01:01; Start 01/24/18 at 10:15; Stop 01/25/18 at 11:01; Status DC Potassium Chloride/Dextrose 1,000 ml @ 100 mls/hr Q10H IV Last administered on 01/26/18at 22:00; Start 01/25/18 at 11:30 Nystatin (Nystop) 1 erik BID TP Last administered on 01/26/18at 09:47; Start 01/25 at 21:00 Fentanyl Citrate (Fentanyl 2ml Vial) 25 mcg Q3H PRN IV SEVERE PAIN Last administered on 01/26/18at 00:36; Start 01/25/18 at 11:45 Active Scripts Active Reported Duoneb 0.5-3(2.5) Mg/3 Ml (Albuterol/Ipratropium) 3 Ml Ampul.neb 3 Ml NEB QID Trazodone Hcl 50 Mg Tablet 50 Mg PO PRN QHS PRN Zoloft (Sertraline Hcl) 50 Mg Tablet 50 Mg PO DAILY Hydrocodone-Apap 5-325 (Hydrocodone Bit/Acetaminophen) 1 Each Tablet 1 Tab PO PRN Q4HRS PRN Methimazole 5 Mg Tablet 5 Mg PO TID Zyprexa Zydis (Olanzapine) 5 Mg Tab.rapdis 2.5 Mg PO PRN Q8MIN PRN Zyprexa (Olanzapine) 5 Mg Tablet 5 Mg PO QHS Zofran Odt (Ondansetron) 4 Mg Tab.rapdis 4 Mg PO PRN Q6HRS PRN Tylenol (Acetaminophen) 325 Mg Tablet 650 Mg PO PRN Q6HRS PRN Calci-Chew (Calcium Carbonate) 500 Mg Tab.chew 500 Mg PO PRN BID PRN Tamsulosin Hcl 0.4 Mg Cap.er.24h 0.4 Mg PO QHS Onglyza (Saxagliptin Hcl) 5 Mg Tablet 2.5 Mg PO DAILY Pravastatin Sodium 80 Mg Tablet 80 Mg PO QHS Omeprazole 20 Mg Tablet.dr 20 Mg PO DAILY Mag-Al Plus Xs Suspension (Mag Hydrox/Al Hydrox/Simeth) 30 Ml Oral.susp 15 Ml PO PRN Q4HRS PRN Metoprolol Tartrate 25 Mg Tablet 25 Mg PO BID Lidopatch (Lidocaine/Menthol) 1 Each Adh..patch 1 Patch TP DAILY Flonase Allergy Relief (Fluticasone Propionate) 9.9 Ml [place].susp 1 Sprays NS DAILY Finasteride 5 Mg Tablet 5 Mg PO DAILY Docusate Sodium 100 Mg Capsule 100 Mg PO BID Vitamin D3 (Cholecalciferol (Vitamin D3)) 1,000 Unit Tablet 1,000 Unit PO DAILY [place] Saline (Sodium Chloride) 50 Ml [place] 1 Erik NS PRN Q4HRS PRN Aspirin 325 Mg Tablet 325 Mg PO DAILY Allopurinol 100 Mg Tablet 100 Mg PO DAILY Proair Hfa Inhaler (Albuterol Sulfate) 8.5 Gm Hfa.aer.ad 2 Puff INH PRN Q4HRS PRN EMELI YEPEZ DO Jan 27, 2018 12:06
[2018-01-27] MEDS: HYDROcodone/APAP 5/325MG 1 TAB TABLET PO PRN (15:30)
--- NOTE | 2018-01-27 21:49 | PN ---
DATE: 01/26/2018 PSYCHIATRIC PROGRESS NOTE This is a late entry 01/26/2018, covers elements not covered in my initial note. SUBJECTIVE: I met with the patient in the evening. Per nursing report, the yelling is better. He remains confused, quite delirious intermittently, but medically seems to be showing improvement. REVIEW OF SYSTEMS: No CV, , pulmonary, eye, ENT system symptoms on review. He does not directly respond when questioned, consequent to his confusion. MENTAL STATUS EXAM: Oriented to himself. Insight, judgment, recent and remote memory, attention, concentration, fund of knowledge poor, consistent with his diagnosis mentioned in my initial note. PLAN: No change from initial note, deferred to Dr. Minaya. Once the patient is medically stable, he may return to the intermediate. MAN Ferny FARIA MD DR: MIHAELA/anastasia JOB#: [id number] / [id number]
== END 2018-01-27 16:33 | DRG 871 ==
LOC: 1 SOUTH 18:28
PROVIDERS: ADMIT Internal Medicine; ATTEND Internal Medicine
DX: A41.9 Sepsis, unspecified organism (principal); E43 Unspecified severe protein-calorie malnutrition; E87.0 Hyperosmolality and hypernatremia; F01.51 Vascular dementia, unspecified severity, with behavioral disturbance; F02.81 Dementia in other diseases classified elsewhere, unspecified severity, with behavioral disturbance; N17.9 Acute kidney failure, unspecified; D64.9 Anemia, unspecified; Z66 Do not resuscitate; E05.90 Thyrotoxicosis, unspecified without thyrotoxic crisis or storm; E11.22 Type 2 diabetes mellitus with diabetic chronic kidney disease; E78.5 Hyperlipidemia, unspecified; E86.0 Dehydration; E87.6 Hypokalemia; F32.9 Major depressive disorder, single episode, unspecified; F41.9 Anxiety disorder, unspecified; F63.9 Impulse disorder, unspecified; G30.9 Alzheimer's disease, unspecified; I12.9 Hypertensive chronic kidney disease with stage 1 through stage 4 chronic kidney disease, or unspecified chronic kidney disease; I25.10 Atherosclerotic heart disease of native coronary artery without angina pectoris; K11.20 Sialoadenitis, unspecified; K21.9 Gastro-esophageal reflux disease without esophagitis; M50.30 Other cervical disc degeneration, unspecified cervical region; N18.3 Chronic kidney disease, stage 3 (moderate); N40.0 Benign prostatic hyperplasia without lower urinary tract symptoms; Z87.891 Personal history of nicotine dependence; Z91.19 Patient's noncompliance with other medical treatment and regimen; Z95.5 Presence of coronary angioplasty implant and graft; Z79.84 Long term (current) use of oral hypoglycemic drugs; Z99.3 Dependence on wheelchair; Z87.81 Personal history of (healed) traumatic fracture; Z88.8 Allergy status to other drugs, medicaments and biological substances; Z79.82 Long term (current) use of aspirin; Z79.899 Other long term (current) drug therapy; Z68.24 Body mass index [BMI] 24.0-24.9, adult; Z91.81 History of falling
CPT/HCPCS: 36415; 70490; 71250; 80048; 80053; 81001; 82947; 83605; 85007; 85025; 85027; 87040; 87641; 94640; J2020; J2543; J3010; J7620; 97110; 97116; J7030